=== PATIENT | female | born 1930 | race Caucasian/White ===

== ENCOUNTER → 2016-09-20 | Outpatient (CLI) | payer MEDICARE, OTHER ==
[~2016-09-20] MED LIST: "\\\"WATER PILL\\\""; [UNRECOGNIZED DRUG - REMARK]
[2016-09-20 12:07] LABS: BLOOD UREA NITROGEN 14 mg/dL (7-18)
[2016-09-20 12:12] LABS: ASPARTATE AMINO TRANSFERASE 11 U/L (15-37)
== END | disposition home or self-care (01) ==
LOC: CFH 10:08
PROVIDERS: ATTEND Physician Assistant
DX: R60.9 Edema, unspecified (principal)
CPT/HCPCS: 36415; 80053